=== PATIENT | female | born 1945 | race Caucasian/White ===

== ENCOUNTER → 2016-06-14 | Outpatient (CLI) | payer MEDICARE, BC ==
--- NOTE | 2016-06-14 14:19 | RAD ---
CT of the chest without contrast, 06/14/2016: History: Follow-up nodule Noncontrast scans were obtained and compared to a study from 12/22/2015. Moderate emphysematous changes are present in the lungs with scattered linear and elongated parenchymal scars. Several calcified granulomata are present in both lungs. There are bilateral apical pleural-parenchymal opacities compatible with scarring. A hazy left upper lobe groundglass opacity seen on image 97 of series #3 is unchanged. It measures approximately 11 mm. A 3.5 mm nodule is noted laterally in the right upper lobe on image 153 of series #3. It measured approximately 3 mm in diameter on the previous study. This slight difference is probably on a technical basis, as thinner reconstructions were performed on today's exam. A few other very tiny nodular opacities appear to be unchanged. No new or enlarging pulmonary lesions are seen. There is no evidence of pleural fluid. There is moderate calcific plaquing of the thoracic aorta without evidence of aneurysm. Moderate coronary artery calcifications are present. No mediastinal adenopathy is seen. There is a mild thoracic scoliosis with multilevel degenerative change. IMPRESSION: 1. Emphysema with parenchymal scarring. 2. Unchanged small bilateral nodular and groundglass opacities. 3. Coronary artery disease. PQRS Compliance Statement: One or more of the following individualized dose reduction techniques were utilized for this examination: 1. Automated exposure control 2. Adjustment of the mA and/or kV according to patient size 3. Use of iterative reconstruction technique
== END | disposition home or self-care (01) ==
LOC: CT 08:34
PROVIDERS: ATTEND Internal Medicine Pulmonary Disease
DX: R91.1 Solitary pulmonary nodule (principal); J43.9 Emphysema, unspecified; J98.4 Other disorders of lung; I25.10 Atherosclerotic heart disease of native coronary artery without angina pectoris
CPT/HCPCS: 71250

== ENCOUNTER → 2016-07-01 | Outpatient (CLI) | payer MEDICARE, BC ==
[~2016-07-01] MED LIST: AMLO5TAB2 PO; ASPI81TA2 PO; ATOR10TA60 PO; CALC-77 PO; CALC600T4 PO; LISI40TA PO; METH2.5T PO; METO100T11 PO
== END | disposition home or self-care (01) ==
LOC: PMGWOUND 10:30
PROVIDERS: ATTEND Emergency Medicine Undersea and Hyperbaric Medicine
DX: L03.116 Cellulitis of left lower limb (principal); M06.9 Rheumatoid arthritis, unspecified; M19.042 Primary osteoarthritis, left hand; M19.041 Primary osteoarthritis, right hand; F17.210 Nicotine dependence, cigarettes, uncomplicated
CPT/HCPCS: 99213

== ENCOUNTER → 2016-07-15 | Outpatient (CLI) | payer MEDICARE, BC | END | disposition home or self-care (01) | LOC: PMGWOUND 10:57 | PROVIDERS: ATTEND Emergency Medicine Undersea and Hyperbaric Medicine | DX: L03.116 Cellulitis of left lower limb (principal); M19.90 Unspecified osteoarthritis, unspecified site; M06.9 Rheumatoid arthritis, unspecified; F17.210 Nicotine dependence, cigarettes, uncomplicated; I10 Essential (primary) hypertension; I73.9 Peripheral vascular disease, unspecified; I25.10 Atherosclerotic heart disease of native coronary artery without angina pectoris | CPT/HCPCS: 99214 ==

== ENCOUNTER → 2016-07-29 | Outpatient (CLI) | payer MEDICARE, BC | END | disposition home or self-care (01) | LOC: PMGWOUND 10:39 | PROVIDERS: ATTEND Emergency Medicine Undersea and Hyperbaric Medicine | DX: L03.116 Cellulitis of left lower limb (principal); J43.9 Emphysema, unspecified; M19.90 Unspecified osteoarthritis, unspecified site; M06.9 Rheumatoid arthritis, unspecified; F17.210 Nicotine dependence, cigarettes, uncomplicated; I25.10 Atherosclerotic heart disease of native coronary artery without angina pectoris; I10 Essential (primary) hypertension; I73.9 Peripheral vascular disease, unspecified | CPT/HCPCS: 99214 ==

== ENCOUNTER → 2017-01-29 | Outpatient (CLI) | payer MEDICARE, BC ==
[~2017-01-29] MED LIST changes: +ASPI-630 PO; -ASPI81TA2 PO; +METO-247 PO; -METO100T11 PO
--- NOTE | 2017-01-30 09:21 | KCIC ---
DATE: 01/30/2017. EXAM: MAMMO GENE SCREENING BILATERAL. HISTORY: Routine mammographic screening. COMPARISON: 09/13/2015, 03/29/2013. This study was interpreted with the benefit of Computerized Aided Detection (CAD). FINDINGS: The breast parenchyma shows scattered fibroglandular densities. Breast parenchyma level B.. There are no suspicious masses, microcalcifications or architectural distortion. Scattered and vascular calcifications are benign. Parenchymal density is decreased. BI-RADS CATEGORY: 2 BENIGN FINDING(S). RECOMMENDED FOLLOW-UP: 12M 12 MONTH FOLLOW-UP. PQRS compliance statement: Patient information was entered into a reminder system with a target due date 01/30/2018 for the next mammogram. Mammography is a sensitive method for finding small breast cancers, but it does not detect them all and is not a substitute for careful clinical examination. A negative mammogram does not negate a clinically suspicious finding and should not result in delay in biopsying a clinically suspicious abnormality. "Our facility is accredited by the [employer] Mammography Program."
== END | disposition home or self-care (01) ==
LOC: KCIC MAMMO 14:14
PROVIDERS: ATTEND Physician Assistant
DX: Z12.31 Encounter for screening mammogram for malignant neoplasm of breast (principal)
CPT/HCPCS: 77063; G0202; 77067

== ENCOUNTER → 2017-04-09 | Outpatient (CLI) | payer MEDICARE, BC ==
--- NOTE | 2017-04-09 15:53 | KCIC ---
INDICATION: Cough and chest wall pain. TECHNIQUE: Two-view chest radiograph was obtained. No comparison is available. FINDINGS: The lungs are hyperinflated. There is flattening of the diaphragm and increase in retrosternal clear space. There is no consolidation. There is no pleural effusion. The heart is not enlarged. There is no obvious heart failure. There is atheromatous disease in the thoracic aorta. There is irregularity at the first costochondral junction on the left. IMPRESSION: No acute thoracic findings. Hyperinflation suggests emphysema. Electronically signed by: Lucas Herron MD (04/09/2017 3:50 PM) [id number]
--- NOTE | 2017-04-09 15:55 | KCIC ---
INDICATION: Pain under left breast. Chest wall pain and cough. TECHNIQUE: Left rib series contains 3 views and 4 images. FINDINGS: No displaced rib fracture or osseous lesion is apparent. There is no pneumothorax or pleural fluid. There is a calcified granuloma in the left apex in addition to the degenerative findings at the first costochondral junction IMPRESSION: Negative for displaced rib fracture. Electronically signed by: Lucas Herron MD (04/09/2017 3:52 PM) [id number]
== END | disposition home or self-care (01) ==
LOC: KCIC 14:53
PROVIDERS: ATTEND Physician Assistant
DX: J84.10 Pulmonary fibrosis, unspecified (principal); R07.89 Other chest pain; R05 Cough; N64.4 Mastodynia
CPT/HCPCS: 71020; 71100

== ENCOUNTER → 2017-06-16 | Outpatient (CLI) | payer MEDICARE, BC | END | disposition home or self-care (01) | LOC: CT 12:16 | DX: J43.9 Emphysema, unspecified (principal); M41.84 Other forms of scoliosis, thoracic region; E04.1 Nontoxic single thyroid nodule; R91.8 Other nonspecific abnormal finding of lung field | CPT/HCPCS: 71250 ==

== ENCOUNTER → 2018-02-13 | Outpatient (CLI) | payer MEDICARE, BC ==
[~2018-02-13] MED LIST changes: -AMLO5TAB2 PO; +AMLO5TAB7 PO; +DONE5TAB7 PO; +FOLI1TAB16 PO; +FURO40TA4 PO; +LISI-130 PO; -LISI40TA PO; +METO-269 PO; +NAPR500T8 PO; +RIVA1PAT11 TD
--- NOTE | 2018-02-13 17:00 | KCIC ---
Examination: CHEST PA LATERAL History: COPD exacerbation, wheezing Comparison/Correlation: 04/09/2017 two-view chest x-ray exam, 06/16/2017 CT chest without contrast Findings: PA and lateral views of chest were obtained. Left basilar consolidation is noted. Heart size normal. No pneumothorax. Biapical pleural thickening is present. Scoliosis of the spine evident. Pulmonary hyperinflation is present. Impression: Left basilar consolidation. Follow-up to resolution recommended. COPD. Electronically signed by: Darius Adams MD (02/13/2018 4:57 PM) [facility]
== END | disposition home or self-care (01) ==
LOC: KCIC 15:07
PROVIDERS: ATTEND Family Medicine
DX: J44.1 Chronic obstructive pulmonary disease with (acute) exacerbation (principal); M41.84 Other forms of scoliosis, thoracic region
CPT/HCPCS: 71046